=== PATIENT | female | born 1945 | race Caucasian/White ===

== ENCOUNTER → 2016-12-30 | Outpatient (CLI) | payer BC, OTHER ==
[~2016-12-30] MED LIST: ACTI300C PO; ASPI81TA21 PO; CHEW500C2 PO; CITR500T PO; COMB0.2S OU; EFFE75CA75 PO; HYDR12.55 PO; IBUP200C PO; PLAQUENIL PO; PROTPAK PO; TRAZ50TA4 PO; VALS1TAB46 PO; VITAPOW41 XX; WELC625T PO; [UNRECOGNIZED DRUG - CODE] EX
--- NOTE | 2016-12-30 17:03 | REP ---
Clinical: Left lower lobe mass. Comparison: None. Findings: There is a 5.1 x 5.0 x 2.8 cm mass at the left lung base (images 61- 73). The remainder of lung gaines are clear and there is no evidence for adenopathy. Mediastinum demonstrates atherosclerotic changes to the thoracic aorta and relatively normal heart/pericardium. A 2.6 cm soft tissue lesion with central calcification is noted in left breast (images 31 - 39). Surrounding musculoskeletal structures are normal for age. Bilateral adrenal glands are normal. Evidence for prior cholecystectomy. Impression: 1. A 5 cm mass at the left lung base without adenopathy. Differential diagnosis includes consolidation and neoplasm. 2. 2.6 cm left breast lesion. Signed by Jair Duran MD 12/30/2016 04:54 P
[2016-12-30 17:04] LABS: INR 0.96
== END ==
LOC: M RAD 16:09 → M LAB 16:09
PROVIDERS: ATTEND Internal Medicine Pulmonary Disease
DX: R91.8 Other nonspecific abnormal finding of lung field (principal)

== ENCOUNTER → 2017-01-05 | Day surgery (SDC) | payer OTHER ==
[~2017-01-05] VITALS: Ht 165.1 cm; Wt 95.3 kg
[~2017-01-05] MED LIST changes: +EPINEPHrine 1MG/10ML SYRINGE 1.5IN As Ordered ONE; +GLYCOPYRROLATE INJ 0.2 MG/ML 2 ML VIAL As Ordered ONE; +HYDROmorphone HCL 1 MG/ML SYRINGE (J1170) IV PRN; +LABETALOL HCL 100 MG/20 ML VIAL As Ordered ONE; +LIDOCAINE 2% INJ 100 MG/5 ML SDV (FOR ANES.) As Ordered ONE; +LR 1,000 ML IV SCH; +MIDAZOLAM INJ 2 MG/2 ML VIAL (J2250) As Ordered ONE; +NEOSTIGMINE 1MG/ML 5 ML SYRINGE (J2710) As Ordered ONE; +ONDANSETRON 4MG/2ML VIAL (J2405) As Ordered ONE; +ONDANSETRON 4MG/2ML VIAL (J2405) IV PRN; +PERCOCET 5MG/325MG TAB PO PRN; +PROPOFOL 200 MG/20 ML VIAL As Ordered ONE; +ROCURONIUM BROMIDE 50 MG/5 ML VIAL As Ordered ONE; +THROMBIN SOLN 5,000 UNITS VIAL As Ordered ONE; +dexameTHASONE 4 MG/ML 1ML VIAL (J1100) As Ordered ONE; +fentaNYL 100 MCG/2 ML INJECTION (J3010) As Ordered ONE; +fentaNYL 100 MCG/2 ML INJECTION (J3010) IV PRN
[2017-01-05 16:01] LABS: TNC 139 cells/uL (0-20)
[2017-01-05 16:08] LABS: COLOR COLORLESS (COLORLESS)
[2017-01-05 16:09] LABS: BAL DIFF IF INDICATED? YES (NO)
--- NOTE | 2017-01-05 16:14 | REP ---
Clinical: Post-op evaluation. Comparison: 11/16/2016. Findings: Mediastinum and cardiac silhouette are within normal limits. Right hemithorax appears well aerated and clear. Left basilar atelectasis cannot be excluded. Small clip in the left base noted. No pneumothorax. No obvious effusion. Skeletal structures intact. Impression: Cannot exclude left lower lobe atelectasis Signed by Jair Duran MD 01/05/2017 04:05 P
[2017-01-05 17:00] VITALS: BP 142/70
[2017-01-05 19:41] LABS: CC BAL DIFF EXAM CYTOCENTRIFUGE
--- NOTE | 2017-01-05 22:06 | RO ---
DATE OF PROCEDURE: 01/05/2017 PREOPERATIVE DIAGNOSIS: Left lower lobe lesion, abnormal chest CT. POSTOPERATIVE DIAGNOSIS: Left lower lobe lesion, abnormal chest CT. FINDINGS: Normal airway. OPERATIVE PROCEDURE: Bronchoscopy with electromagnetic navigation bronchoscopy and fiducial marker placement. SURGEON: Lion Gallagher DO SENIOR MEDIA DIRECTOR: None. ANESTHESIA: General. SPECIMENS: 1. Fine-needle aspiration left lower lobe. 2. Transbronchial biopsy left lower lobe. 3. Cyto-needle brush left lower lobe. 4. Bronchoalveolar lavage left lower lobe. REPLACED: None. ESTIMATED BLOOD LOSS: About 10 to 15 mL. DRAINS: None. COMPLICATIONS: No observed complications. DESCRIPTION OF PROCEDURE: After informed consent was reviewed with the patient in the preoperative area, she was brought back to OR number 8. The patient was placed under general anesthesia and the case was handed over to me. Time-out was performed with two patient identifiers identifying correct site, correct procedure. The 1T180 scope was then inserted through the 8.0 endotracheal tube with Cetacaine spray. Airways appeared normal except for some clear mucus. RB 1-10 was normal without endobronchial lesions. LB 1-10 was normal without endobronchial lesions. Right and left mainstem was normal and dorian was sharp. Trachea was normal. After airway exam the navigational guide was inserted into the 1T180 bronchoscope. I navigated to the left lower lobe lesion in the anterior segment and according to the images on i[employer] was within close proximity. This was confirmed with fluoroscopy. After confirmation with fluoroscopy, the LG guide was removed with the sheath remaining. Four GenCut FNAs were performed. This was followed by the needle brush and multiple transbronchial biopsies. After adequate sampling, 2 fiducial markers were placed and a bronchoalveolar lavage was performed. After all these samples were taken , the catheter was removed. Airways were suctioned to ensure hemostasis. There were no observed complications. Postprocedure chest x-ray is pending. [facility]
--- NOTE | 2017-01-06 08:34 | REP ---
FLUOROSCOPIC GUIDANCE FOR ENDOBRONCHIAL NAVIGATIONAL BIOPSY: 01/05/2017 Clinical history: Left lower lobe lung mass. Single image from the fluoroscopic guidance provided to Dr. Gallagher of the pulmonary division. This is over the left lower lung zone and shows the bronchoscope and probe overlying the left lower lobe. Fluoroscopy time: 5 minutes 43 seconds. Signed by Sami Adair MD 01/06/2017 05:03 P
== END | disposition home or self-care (01) ==
LOC: M SDC 11:22
PROVIDERS: ATTEND Internal Medicine Pulmonary Disease
DX: R91.8 Other nonspecific abnormal finding of lung field (principal); I10 Essential (primary) hypertension; E55.9 Vitamin D deficiency, unspecified; K21.9 Gastro-esophageal reflux disease without esophagitis; E78.4 Other hyperlipidemia; G47.33 Obstructive sleep apnea (adult) (pediatric); K74.69 Other cirrhosis of liver; Z85.79 Personal history of other malignant neoplasms of lymphoid, hematopoietic and related tissues; Z92.3 Personal history of irradiation; Z79.899 Other long term (current) drug therapy; Z85.820 Personal history of malignant melanoma of skin; F32.9 Major depressive disorder, single episode, unspecified
CPT/HCPCS: 31623; 31624; 31626; 31627; 31628; 31629; 71010; 76000; 87070; 87102; 87116; 87205; 87206; 88104; 88108; 88172; 88173; 88305; 88313; 89051; J1100; J2250; J2405; J2710; J3010

== ENCOUNTER → 2017-03-17 | Outpatient (CLI) | payer OTHER ==
[~2017-03-17] MED LIST changes: -EPINEPHrine 1MG/10ML SYRINGE 1.5IN As Ordered ONE; -GLYCOPYRROLATE INJ 0.2 MG/ML 2 ML VIAL As Ordered ONE; -HYDROmorphone HCL 1 MG/ML SYRINGE (J1170) IV PRN; -LABETALOL HCL 100 MG/20 ML VIAL As Ordered ONE; -LIDOCAINE 2% INJ 100 MG/5 ML SDV (FOR ANES.) As Ordered ONE; -LR 1,000 ML IV SCH; -MIDAZOLAM INJ 2 MG/2 ML VIAL (J2250) As Ordered ONE; -NEOSTIGMINE 1MG/ML 5 ML SYRINGE (J2710) As Ordered ONE; -ONDANSETRON 4MG/2ML VIAL (J2405) As Ordered ONE; -ONDANSETRON 4MG/2ML VIAL (J2405) IV PRN; -PERCOCET 5MG/325MG TAB PO PRN; -PROPOFOL 200 MG/20 ML VIAL As Ordered ONE; -ROCURONIUM BROMIDE 50 MG/5 ML VIAL As Ordered ONE; -THROMBIN SOLN 5,000 UNITS VIAL As Ordered ONE; -dexameTHASONE 4 MG/ML 1ML VIAL (J1100) As Ordered ONE; -fentaNYL 100 MCG/2 ML INJECTION (J3010) As Ordered ONE; -fentaNYL 100 MCG/2 ML INJECTION (J3010) IV PRN
--- NOTE | 2017-03-18 04:34 | REP ---
Clinical: Chest mass. Comparison: 12/30/2016. Findings: The previously noted 5 cm mass along the left lung base now demonstrates central surgical clip, but is otherwise essentially unchanged compared to prior examination. The remainder of lung gaines are well-aerated and essentially clear. No further consolidation, nodule or mass lesion appreciated. Tracheobronchial tree is patent. No significant adenopathy. No pleural effusion. No pneumothorax. Minimal atherosclerotic changes to the thoracic aorta and coronary arteries noted without aortic aneurysm or cardiomegaly. No pericardial effusion. Surrounding musculoskeletal structures without focal osseous abnormality. Left breast mass remains stable. Impression: 1. A 5 cm soft tissue mass in the left lower lobe along the diaphragmatic surface now demonstrates central surgical clip, but is otherwise unchanged. 2. No new acute mediastinal or pleuroparenchymal process appreciated. 3. Left breast mass with presumed surgical clips stable. Signed by Jair Duran MD 03/18/2017 04:26 A
== END ==
LOC: M RAD 10:35
PROVIDERS: ATTEND Internal Medicine Pulmonary Disease
DX: R91.8 Other nonspecific abnormal finding of lung field (principal)

== ENCOUNTER → 2020-06-21 | Outpatient (CLI) | payer BC ==
[~2020-06-21] MED LIST changes: +ASPI-161 PO; +CALC1TAB61 PO; +CALC600T63 PO; +CETI-24 PO; +CLOB0.0548 TOP; +COLE625TAB PO; +D31000TA2 PO; +EFFE75CA2 PO; -EFFE75CA75 PO; +FAMO40TA3 PO; +FENO134C PO; +FLON1SPR NARES; +FLUT05CR TOP; +GABA-1171 PO; +HYDR25TAB PO; -IBUP200C PO; +IBUP200C25 PO; +IRON65TA2 PO; +LATA0.0015 OS; +LOSA50TA88 PO; +MOME0.1C3 EX; +MOTR200T44 PO; +PANT-23 PO; +PLAQ200T4 PO; +PROBCAP14 PO; +TOBROPO OU; +TRAM50TA2 PO; +TRAZ-252 PO; -TRAZ50TA4 PO; +URSO1TAB8 PO; -VALS1TAB46 PO; +VALS1TAB66 PO; +VITA100066 PO; +VITA500T40 PO; -WELC625T PO; -[UNRECOGNIZED DRUG - CODE] EX; +[UNRECOGNIZED DRUG - OTHER] OU
== END ==
LOC: M LABSMTC 13:17
PROVIDERS: ATTEND Internal Medicine Pulmonary Disease
DX: Z11.59 Encounter for screening for other viral diseases (principal)

== ENCOUNTER 2020-06-26 06:21 | Day surgery (SDC) | payer BC ==
[~2020-06-26] VITALS: Ht 167.6 cm; Wt 100.2 kg
[~2020-06-26 06:21] MED LIST changes: -ASPI-161 PO; -CALC1TAB61 PO; +CETACAINE SPRAY 5GM As Ordered ONE; -CLOB0.0548 TOP; -D31000TA2 PO; +EPINEPHrine 1MG/10ML SYRINGE 1.5IN As Ordered ONE; -FLON1SPR NARES; -IRON65TA2 PO; +LIDOCAINE 1% SDV 30ML VIAL As Ordered ONE; +LIDOCAINE 4% TOPICAL SOLN 50 ML BTL As Ordered ONE; +LIDOCAINE VISCOUS 2% SOLN 15ML UDC As Ordered ONE; -MOTR200T44 PO; -PANT-23 PO; +THROMBIN SOLN 20,000 UNITS KIT As Ordered ONE; -TOBROPO OU
[2020-06-26] MEDS ORDERED: ONDANSETRON 4MG/2ML VIAL As Ordered ONE (06:59)
[2020-06-26] MEDS ORDERED: ROCURONIUM BROMIDE 50 MG/5 ML VIAL As Ordered ONE ×2 (06:59→08:09)
[2020-06-26] MEDS ORDERED: LIDOCAINE 2% 100MG/5ML SDV (FOR ANES.) As Ordered ONE (06:59)
[2020-06-26] MEDS ORDERED: propofoL 200 MG/20 ML VIAL As Ordered ONE (06:59)
[2020-06-26] MEDS ORDERED: ALBUTEROL SULFATE 2.5 MG/0.5 ML INH NEB SOLN INH ONE (07:00)
[2020-06-26] MEDS ORDERED: MIDAZOLAM INJ 2MG/2ML VIAL (J2250 PER 1MG) As Ordered ONE (07:00)
[2020-06-26] MEDS ORDERED: LIDOCAINE 4% INJ 5ML AMP As Ordered ONE (07:00)
[2020-06-26] MEDS ORDERED: LIDOCAINE 4% INJ 5ML AMP INH ONE (07:00)
[2020-06-26] MEDS ORDERED: LR 1,000 ML IV ONE (07:00)
[2020-06-26] MEDS ORDERED: fentaNYL 100 MCG/2 ML INJECTION (J3010) As Ordered ONE (07:00)
[2020-06-26] MEDS ORDERED: ePHEDrine SULFATE 25 MG/5 ML(5MG/ML) SYRINGE As Ordered ONE (08:07)
[2020-06-26] MEDS ORDERED: SUGAMMADEX SODIUM 500 MG/5 ML VIAL (BRIDION) As Ordered ONE (08:36)
[2020-06-26] MEDS ORDERED: LR 1,000 ML IV SCH (09:45)
[2020-06-26] MEDS ORDERED: fentaNYL 100 MCG/2 ML INJECTION (J3010) IV PRN (09:45)
[2020-06-26] MEDS ORDERED: oxyCODONE 5MG TAB PO PRN (09:45)
[2020-06-26] MEDS ORDERED: ONDANSETRON 4MG/2ML VIAL IV PRN (09:45)
[2020-06-26] MEDS ORDERED: ACETAMINOPHEN TAB 650MG DOSE (2X325MG) As Ordered ONE (10:13)
[2020-06-26] MEDS ORDERED: ACETAMINOPHEN TAB 650MG DOSE (2X325MG) PO ONE (10:30)
[2020-06-26 11:15] VITALS: BP 155/91
--- NOTE | 2020-07-08 13:58 | RO ---
DATE OF OPERATION: 06/26/2020 PROCEDURALIST: Dr. Lion Gallagher PREPROCEDURE DIAGNOSIS: Left lower lobe abnormality, abnormal chest CT/PET scan. POSTPROCEDURE DIAGNOSIS: Left lower lobe abnormality, abnormal chest CT/PET scan. FINDINGS: Abnormal airways. PROCEDURE: Bronchoscopy with robotic navigation. PROCEDURALIST: Dr. Lion Gallagher ASSISTANTS: Dr. Maxwell and Dr. Troncoso SPECIMENS OBTAINED: * Cytology brush left lower lobe. * Forceps biopsy left lower lobe. * FNA left lower lobe. Small amount of sampling was placed in RPMI; this will be sent for flow cytometry. However, I am not sure there is enough sample. ANESTHESIA: General anesthesia. ESTIMATED BLOOD LOSS: Less than 5 mL. DESCRIPTION OF PROCEDURE: After informed consent was reviewed with the patient in the preoperative area, she was brought back to OR. Anesthesia was initiated with 8.5 endotracheal tube. Case was then handed over to me. Time out was again performed with two patient identifiers, identifying correct site, correct position and correlating the patients name and date of with the [employer] Robotic Navigation. The 1T190 bronchoscope was then inserted into the endotracheal tube. The endotracheal tube was into the right lower lobe. This was retracted into the trachea. All airways were suctioned. Trachea was straight, there was no tortuosity. Dorian was sharp, no fullness. Right and left mainstem bronchi were normal. RB 1 through 10 was normal without endobronchial lesions. Some abnormal mucosa in the RBI but nothing concerning for malignancy. No endotracheal lesions in RB 1 through 10. There were no significant secretions. Left mainstem was then entered. LB 1 through 10 was inspected. No significant abnormalities there. No endobronchial lesions, no banding or pitting. The endotracheal tube was then retracted to just over 4 cm from the dorian. This was taped in place at 19 at the lip. The 1T190 bronchoscope was removed and robotic bronchoscope was then inserted. Registration was then performed and then target #1 in the left lower lobe was navigated to very difficult to get to, there was a bend in the airway which made it difficult for sampling. Samples were taken under fluoroscopy with the additional help of radio ultrasound; cytobrush, forceps biopsies and then fine needle aspiration of the soft tissue was obtained. Results are pending. Samples were then taken for RPMI. We did not get a lot of tissue return from the fine needle aspirations therefore I am not sure that RPMI will be successful. After multiple sampling without significant improvement in tissue yield with FNA the procedure was stopped. The robotic bronchoscope was removed. The 1T190 bronchoscope was reinserted to ensure hemostasis. Airways were suctioned, hemostasis was assured and the 1T190 bronchoscope was removed. Postprocedure chest x-ray is pending. No observed complications. MTDD
--- NOTE | 2020-07-11 08:05 | REP ---
CHEST X-RAY: 06/26/20 CLINICAL: Post-operative assessment. COMPARISON: 01/05/17. FINDINGS: Mediastinum and cardiac silhouette are stable. Linear platelike atelectasis in the left lower lung zone cannot be excluded. The lung gaines are otherwise clear. No effusion. No pneumothorax. Skeletal structures are intact. IMPRESSION: 1. Cannot exclude linear platelike atelectasis in the left lower lobe. 2. No effusion or pneumothorax appreciated. MTDD
[2020-08-01] MEDS ORDERED: IRON65TA2 PO (13:55)
[2020-08-01] MEDS ORDERED: PROTPAK PO (13:55)
[2020-08-01] MEDS ORDERED: MOTR200T44 PO (13:55)
[2020-08-01] MEDS ORDERED: CLOB0.0548 TOP (13:55)
[2020-08-01] MEDS ORDERED: FLON1SPR NARES (13:55)
[2020-08-05] MEDS ORDERED: CALC1TAB61 PO (09:24)
[2020-08-05] MEDS ORDERED: PANT-23 PO (09:24)
[2020-08-05] MEDS ORDERED: TOBROPO OU (09:24)
[2020-08-05] MEDS ORDERED: ASPI-161 PO (09:24)
[2020-08-05] MEDS ORDERED: D31000TA2 PO (09:24)
== END 2020-06-26 11:25 | disposition home or self-care (01) ==
LOC: M SDC 06:21
PROVIDERS: ATTEND Internal Medicine Pulmonary Disease
DX: R91.8 Other nonspecific abnormal finding of lung field (principal); I10 Essential (primary) hypertension; R01.1 Cardiac murmur, unspecified; G47.30 Sleep apnea, unspecified; K21.9 Gastro-esophageal reflux disease without esophagitis; F32.9 Major depressive disorder, single episode, unspecified; Z79.82 Long term (current) use of aspirin; Z79.899 Other long term (current) drug therapy
CPT/HCPCS: 31623; 31627; 31628; 31629; 71045; 76000; 88104; 88173; 88305; J2250; J2405; J3010; S2900

== ENCOUNTER → 2020-07-12 | Outpatient (CLI) | payer BC ==
[~2020-07-12] MED LIST changes: +ASPI-161 PO; +CALC1TAB61 PO; -CETACAINE SPRAY 5GM As Ordered ONE; +CLOB0.0548 TOP; +D31000TA2 PO; -EPINEPHrine 1MG/10ML SYRINGE 1.5IN As Ordered ONE; +FLON1SPR NARES; +IRON65TA2 PO; -LIDOCAINE 1% SDV 30ML VIAL As Ordered ONE; -LIDOCAINE 4% TOPICAL SOLN 50 ML BTL As Ordered ONE; -LIDOCAINE VISCOUS 2% SOLN 15ML UDC As Ordered ONE; +MOTR200T44 PO; +PANT-23 PO; -THROMBIN SOLN 20,000 UNITS KIT As Ordered ONE; +TOBROPO OU
== END ==
LOC: M LABSMTC 11:43
PROVIDERS: ATTEND Anesthesiology
DX: Z01.812 Encounter for preprocedural laboratory examination (principal); Z20.828 Contact with and (suspected) exposure to other viral communicable diseases
CPT/HCPCS: C9803; U0003

== ENCOUNTER 2020-07-17 09:03 | Day surgery (SDC) | payer BC ==
[~2020-07-17] VITALS: Ht 162.6 cm; Wt 54.0 kg
[~2020-07-17 09:03] MED LIST changes: +ALBUTEROL SULFATE 2.5 MG/0.5 ML INH NEB SOLN INH ONE; -ASPI-161 PO; -CALC1TAB61 PO; -CLOB0.0548 TOP; -D31000TA2 PO; -FLON1SPR NARES; -IRON65TA2 PO; +LIDOCAINE 4% INJ 5ML AMP INH ONE; +LR 1,000 ML IV ONE; -MOTR200T44 PO; -PANT-23 PO; -TOBROPO OU
[2020-07-17] MEDS ORDERED: propofoL 200 MG/20 ML VIAL As Ordered ONE ×2 (09:25→11:43)
[2020-07-17] MEDS ORDERED: dexameTHASONE 4 MG/ML 1ML VIAL (J1100 PER 1MG) As Ordered ONE (09:25)
[2020-07-17] MEDS ORDERED: MIDAZOLAM INJ 2MG/2ML VIAL (J2250 PER 1MG) As Ordered ONE (09:25)
[2020-07-17] MEDS ORDERED: ONDANSETRON 4MG/2ML VIAL As Ordered ONE (09:25)
[2020-07-17] MEDS ORDERED: fentaNYL 100 MCG/2 ML INJECTION (J3010) As Ordered ONE (09:25)
[2020-07-17] MEDS ORDERED: ROCURONIUM BROMIDE 50 MG/5 ML VIAL As Ordered ONE (09:25)
[2020-07-17] MEDS ORDERED: LIDOCAINE 2% 100MG/5ML SDV (FOR ANES.) As Ordered ONE (09:25)
[2020-07-17] MEDS ORDERED: EPINEPHrine 1MG/10ML SYRINGE 1.5IN As Ordered ONE (10:41)
[2020-07-17] MEDS ORDERED: LIDOCAINE 1% SDV 30ML VIAL As Ordered ONE (10:41)
[2020-07-17] MEDS ORDERED: THROMBIN SOLN 5,000 UNITS VIAL As Ordered ONE (10:41)
[2020-07-17] MEDS ORDERED: CETACAINE SPRAY 5GM As Ordered ONE (10:41)
[2020-07-17] MEDS ORDERED: SUGAMMADEX SODIUM 500 MG/5 ML VIAL (BRIDION) As Ordered ONE (11:43)
[2020-07-17] MEDS ORDERED: LR 1,000 ML IV SCH (12:45)
[2020-07-17] MEDS ORDERED: fentaNYL 100 MCG/2 ML INJECTION (J3010) IV PRN (12:45)
[2020-07-17] MEDS ORDERED: ONDANSETRON 4MG/2ML VIAL IV PRN (12:45)
[2020-07-17 13:15] VITALS: BP 129/60
--- NOTE | 2020-07-22 15:02 | REP ---
SINGLE VIEW CHEST HISTORY: Left bronchoscopy. TECHNIQUE: Single portable view of the chest is performed status post left bronchoscopy. COMPARISON: Made with prior study of 06/26/2020. FINDINGS: There is no pneumothorax. Lungs are unchanged in appearance. Heart and mediastinum are unchanged. Metallic clip is again seen along the left hemidiaphragm. MTDD
--- NOTE | 2020-07-22 15:03 | REP ---
C-ARM VIEWS LEFT CHEST HISTORY: Left lower lobe abnormality. TECHNIQUE: Multiple C-arm views of the left lower chest performed during bronchoscopy. FINDINGS: Bronchoscope is seen in the left lower lobe. There appears to be a metallic clip along the left hemidiaphragm. FLUOROSCOPY TIME: 3 minutes 39 seconds. MTDD
--- NOTE | 2020-07-23 09:32 | RO ---
DATE OF OPERATION: 07/17/2020 PREOPERATIVE DIAGNOSIS: Lung nodule, abnormal chest CT with history of lymphoma. POSTOPERATIVE DIAGNOSIS: Lung nodule, abnormal chest CT with history of lymphoma. Findings under ultrasound of large adjacent lesion that is circumferential. PROCEDURE: Bronchoscopy with iLogic navigation and radial ultrasound probe. SURGEON: Dr. Gallagher. SUPERVISOR UNDERWRITING CLERKS: None. SPECIMENS OBTAINED: * Cyto-needle brush. * Transbronchial forceps biopsies. * Gencut FNA. * BAL. ANESTHESIA: General. ESTIMATED BLOOD LOSS: Less than 5 mL, none replaced. COMPLICATIONS: No complications. DRAINS: No drains. DESCRIPTION OF PROCEDURE: After informed consent was reviewed with the patient in the preoperative area, she was brought back to OR 8 which is a pre-mapped room. General anesthesia was initiated with an 8.5 endotracheal tube. Case was then handed over to me. Time out was performed with two patient identifiers identifying correct site, correct procedure, correlating her name and date of with the [employer] software. There was an approximately five minute delay as the software could not read the plan, although the plan was already imported prior to the case and reviewed. I had to then re-map the case and upload it, which was performed easily. I then started the case with a repeat time out. Cetacaine spray was used to anesthetize the airway, and with the bronchoscope, all airways were viewed and suctioned. Trachea was midline. Amber was sharp. Right and left mainstem bronchi were normal. RB 1 through 10 was inspected without endobronchial lesion. LB 1 through 10 was inspected without endobronchial lesion. Automatic registration was performed. Target #1 in the left lower lobe in the medial superior posterior portion of the lung was easily navigated to within 9 mm of the center of the lesion. Before performing sampling, the radial ultrasound was inserted showing a circumferential large mass. Transbronchial forceps biopsies along with cyto-needle brushing, Gencut FNAs were all performed. Additional biopsies were taken, and BAL was performed as the catheter was removed from the area. After the iLogic sheath was removed, all airways were suctioned. Hemostasis was assured. Patient is in recovery with no observed complications. Postprocedure chest x-ray is pending. [facility]
[2020-08-01] MEDS ORDERED: MOTR200T44 PO (13:55)
[2020-08-01] MEDS ORDERED: PROTPAK PO (13:55)
[2020-08-01] MEDS ORDERED: IRON65TA2 PO (13:55)
[2020-08-01] MEDS ORDERED: CLOB0.0548 TOP (13:55)
[2020-08-01] MEDS ORDERED: FLON1SPR NARES (13:55)
[2020-08-05] MEDS ORDERED: PANT-23 PO (09:24)
[2020-08-05] MEDS ORDERED: CALC1TAB61 PO (09:24)
[2020-08-05] MEDS ORDERED: TOBROPO OU (09:24)
[2020-08-05] MEDS ORDERED: D31000TA2 PO (09:24)
[2020-08-05] MEDS ORDERED: ASPI-161 PO (09:24)
== END 2020-07-17 13:35 | disposition home or self-care (01) ==
LOC: M SDC 09:03
PROVIDERS: ATTEND Internal Medicine Pulmonary Disease
DX: R91.1 Solitary pulmonary nodule (principal); I10 Essential (primary) hypertension; E78.5 Hyperlipidemia, unspecified; K74.60 Unspecified cirrhosis of liver; M32.9 Systemic lupus erythematosus, unspecified; C83.39 Diffuse large B-cell lymphoma, extranodal and solid organ sites; Z92.3 Personal history of irradiation; Z79.82 Long term (current) use of aspirin; G47.33 Obstructive sleep apnea (adult) (pediatric); Z79.899 Other long term (current) drug therapy; F41.9 Anxiety disorder, unspecified; F32.9 Major depressive disorder, single episode, unspecified
CPT/HCPCS: 31624; 31627; 31628; 31629; 71045; 76000; 88104; 88108; 88173; 88305; 88313; 88342; J1100; J2250; J2405; J3010

== ENCOUNTER → 2020-08-05 | Outpatient (CLI) | payer BC ==
[~2020-08-05] MED LIST changes: -ALBUTEROL SULFATE 2.5 MG/0.5 ML INH NEB SOLN INH ONE; +ASPI-161 PO; +CALC1TAB61 PO; +CLOB0.0548 TOP; +D31000TA2 PO; +FLON1SPR NARES; +IRON65TA2 PO; +LIDOCAINE 1% MDV 20ML VIAL As Ordered ONE; -LIDOCAINE 4% INJ 5ML AMP INH ONE; -LR 1,000 ML IV ONE; +MOTR200T44 PO; +PANT-23 PO; +TOBROPO OU
--- NOTE | 2020-08-05 12:23 | REP ---
INDICATION: POST LEFT LUNG BIOPSY, 1 VIEW, PA EXPIRATION. COMPARISON: 07/17/2020. TECHNIQUE: Single frontal portable view of the chest is performed. FINDINGS: The patient had CT-guided biopsy of a left lower lobe nodule today. There is no pneumothorax 2 hours post biopsy. Metallic clip is seen in the left lung base. Atelectatic changes are seen in each lung base. Heart mediastinum appear unchanged. IMPRESSION: No pneumothorax status post left lung biopsy today. <Electronically signed by Kyler Haile > 08/05/20 [id number]
[2020-08-05 12:31] VITALS: BP 146/87
--- NOTE | 2020-08-05 17:21 | REP ---
INDICATION: LLL NODULE COMPARISON: None. TECHNIQUE: The procedure is performed by ROSI Kinney, under the direct supervision of Dr. Haile. The risks and benefits of the procedure were explained to the patient and informed consent was obtained both orally and written. Directly prior to the start of the procedure, a formal timeout was done in the exam room. The left lower lobe mass was localized using CT guidance. Skin was prepped and draped in the usual sterile fashion. Eight ml of 1% lidocaine 10 mg/ml was used as a local anesthetic. Using CT guidance a 19/20 gauge coaxial needle biopsy system was inserted and advanced into the nodule. Six core biopsy samples were obtained, 4 were placed in formalin, and 2 were placed in RPMI solution to be sent out. FINDINGS: CT images obtained directly after the biopsy show no evidence of pneumothorax. After the appropriate amount of monitored convalescence the patient was discharged from the department. IMPRESSION: Technically successful CT-guided left lower lobe lung mass biopsy <Electronically signed by Rosemary Joya > 08/05/20 1621 <Electronically signed by Kyler Haile > 08/05/20 [id number]
== END ==
LOC: M IRPRO 08:11
PROVIDERS: ATTEND Internal Medicine Pulmonary Disease
DX: R91.8 Other nonspecific abnormal finding of lung field (principal); C83.39 Diffuse large B-cell lymphoma, extranodal and solid organ sites

== ENCOUNTER → 2020-08-09 | Outpatient (CLI) | payer BC ==
[~2020-08-09] MED LIST changes: -LIDOCAINE 1% MDV 20ML VIAL As Ordered ONE
--- NOTE | 2020-08-09 11:52 | REPPI ---
INDICATION: ABNORMAL LUNG FINDING COMPARISON: Portable chest 08/05/2020 and 07/17/2020. TECHNIQUE: PA/Lateral FINDINGS: Lungs: There are linear fibro atelectatic changes in the lung bases. On the lateral view there is a pleural-based 3 cm nodular opacity posteriorly and medially on the left. Metallic clip is seen in the left lung base.. Heart: Normal in size. Mediastinum: There is mild calcification of the thoracic aorta. The mediastinal silhouette otherwise appears unremarkable. Pleural angles: Mild density at the left costophrenic angle.. Bones and soft tissues: There is osteopenia with mild degenerative changes of the spine. IMPRESSION: There are linear fibro atelectatic changes in the lung bases. On the lateral view there is a pleural-based 3 cm nodular opacity posteriorly and medially on the left. Metallic clip is seen in the left lung base.. <Electronically signed by Kyler Haile > 08/09/20 [id number]
== END ==
LOC: M PLAIMG 09:55
PROVIDERS: ATTEND Internal Medicine Pulmonary Disease
DX: R91.8 Other nonspecific abnormal finding of lung field (principal)